=== PATIENT | male | born 1980 | race African-American/Black ===

== ENCOUNTER 2022-03-18 12:22 | Inpatient (IN) ==
[2022-03-18 13:07] LABS: Basophils # (auto) 0.03 K/uL (0-0.2); Basophils % (auto) 0.3 %; Eosinophils # (auto) 0.28 K/uL (0-0.50); Eosinophils % (auto) 2.5 %; Hematocrit (blood only) 49.2 % (40.1-51.0); Immature Granulocytes # (auto) 0.04 K/uL (0.00-0.02); Immature Granulocytes % (auto) 0.4 %; Lymphocytes # (auto) 2.01 K/uL (1.2-3.4); Mean Corpuscular Hemoglobin 31.4 pg (25.0-34.0); Mean Corpuscular Hgb Conc 34.6 g/dL (32.0-36.0); Mean Corpuscular Volume 90.8 fL (80.0-100.0); Mean Platelet Volume 11.2 fL (9.4-12.4); Monocytes # (auto) 0.57 K/uL (0.24-0.82); Monocytes % (auto) 5.1 %; Neutrophils # (auto) 8.23 K/uL (1.4-6.5); Neutrophils % (auto) 73.7 %; Platelet Count 180 K/uL (130-400); RDW Coefficient of Variation 12.6 % (11.5-14.5); RDW Standard Deviation 41.8 fL (36.4-46.3); Red Blood Count 5.42 M/uL (4.63-6.08); White Blood Count 11.16 K/ul (4.8-10.8)
[2022-03-18 13:30] LABS: BUN Creatinine Ratio 7.8 (10-20); Calcium 9.6 mg/dl (8.5-10.1); Creatinine Clr Calc Pharmacy 81.8 ml/min; Est GFR (African American) 78.2 ml/min; Est GFR (Non-African American) 67.5 ml/min; Potassium 4.3 mmol/L (3.5-5.1)
[2022-03-18 13:44] LABS: Albumin Globulin Ratio 1.5 (0.9-2); Albumin Level 4.3 gm/dl (3.4-5.0); Bilirubin,Total 0.7 mg/dl (0.2-1.0); Globulin 2.9 gm/dl (2.5-4.0); Total Protein 7.2 gm/dl (6.0-8.3)
[2022-03-18] MEDS ORDERED: SODIUM CHLORIDE 0.9% 1000ML 1,000 ML IV ONE (15:59)
[2022-03-18] MEDS ORDERED: ONDANSETRON INJ 2 MG/ML 2 ML VIAL IV STA (15:59)
--- NOTE | 2022-03-18 16:06 | Emergency Department Note ---
History of Present Illness General Chief complaint: Abdominal Pain Stated complaint: ABDOMINAL PAIN Time Seen by Provider: 03/18/22 15:44 Source: patient History of Present Illness Provider complaint: Abdominal pain Onset (ago): week(s) Location: abdomen Radiation: non-radiation Pain Consistency: + constant Maximum Pain Intensity: 7 Quality: + sharp Relieved By: + none Associated symptoms: + nausea/vomiting; no chest pain, no cough, no fever/chills or no shortness of breath This is a 41-year-old male with no significant past medical history presenting with abdominal pain. It started 7 days ago. He states it is located above his umbilicus in the epigastric region. He describes it as sharp. He rates it a 7 out of 10 in severity. No modifying factors. It is associated with vomiting today. He also had some diarrhea which was loose and watery. He had about 5 episodes without melanotic or bloody stools. He denies any fever, cough or cold symptoms, chest pain, shortness of breath or urinary symptoms. He has had no back pain. The pain does not radiate anywhere. [facility] without relief. He has been [facility] for several months and has not had access to alcohol. He does state that prior to his incarceration he did drink alcohol but mostly on weekends and holidays. He denies having any pain in the right side of his abdomen. Home Medications Medication Instructions Recorded Confirmed Type acetaminophen 325 mg capsule 325 mg PO QID PRN pain 03/18/22 03/18/22 History (Tylenol) dicyclomine 20 mg tablet 20 mg PO TID 03/18/22 03/18/22 History Past Med/Surg History Medical History (Updated 03/18/22 @ 18:38 by Morgan Pérez MD) Alcohol use History of marijuana use Patellofemoral arthritis of right knee Surgical History (Updated 03/18/22 @ 17:10 by Cristela Hayward PA-C) H/O right knee surgery Family History (Updated 03/18/22 @ 17:08 by Cristela Hayward PA-C) Aunt Pancreatic cancer Social History (Updated 03/18/22 @ 17:09 by Cristela Hayward PA-C) Smoking Status: Former smoker Tobacco Type: Cigarettes Hx Alcohol Use: Yes Hx Substance Use: Yes Non-Prescribed Medications: Marijuana and Other Non- Prescribed Medications Comment: Ecstasy Current Living Situation: Other Current Living Situation Comment: Incarcerated Feels Safe at Home: Yes Review of Systems See HPI for pertinent positives & negatives. and A total of 10 systems reviewed and were otherwise negative Physical Exam Vital Signs Vital Signs - 24 hr 03/18/22 12:37 03/18/22 16:32 Temperature 36.8 C Temperature Source Temporal Artery Scan Pulse Rate 52 L Pulse Rate [Finger] 61 Respiratory Rate 18 18 Respiratory Effort / Characteristics Non-Labored Spontaneous Respiratory Depth Normal Blood Pressure 141/84 H Blood Pressure [Left Arm] 136/83 Blood Pressure Mean 103 Blood Pressure Mean [Left Arm] 100 Pulse Oximetry 97 97 Oxygen Delivery Method Room Air Room Air Sepsis Recent Fever Within 48 Hours No Sepsis New/Unexplained Change in Mental Status No Sepsis Action Taken by Nursing No Action Required Constitutional: Vital signs reviewed. Eyes: Pupils are equal round reactive to light. Conjunctiva are noninjected. ENT: Pharynx is clear without erythema or exudate. Mucous membranes are somewhat dry. Neck supple without meningeal signs. Respiratory: Clear to auscultation bilaterally. Breath sounds are equal bilaterally. Cardiovascular: Regular rate and rhythm. No rubs or gallops. GI: Soft, nondistended with supraumbilical tenderness. No guarding. Bowel sounds are present. Musculoskeletal: No peripheral edema. No CVA tenderness. Integumentary: No cyanosis. or jaundice. Neurological: The patient is awake and alert. No focal deficits. Psychiatric: Normal affect. Not anxious appearing. Course Administered Medications Discontinued Medications Sodium Chloride (Nss 1000ml) 1,000 mls @ 999 mls/hr IV .Q1H1M ONE Stop: 03/18/22 16:59 Last Infusion: 03/18/22 17:25 Dose: 0 mls/hr Documented By: Admin: 03/18/22 16:18 Dose: 999 mls/hr Documented By: MARLYS Morphine Sulfate (Morphine Sulfate 4 Mg/Ml 1 Ml Carp\Vial) 4 mg IV NOW STA Stop: 03/18/22 16:00 Last Admin: 03/18/22 16:20 Dose: 4 mg Documented By: MARLYS Ondansetron HCl (Ondansetron Inj 2 Mg/Ml 2 Ml Vial) 4 mg IV NOW STA Stop: 03/18/22 16:00 Last Admin: 03/18/22 16:15 Dose: 4 mg Documented By: Medical Decision Making Differential Diagnosis Peptic ulcer disease, gallstones, pancreatitis, irritable bowel syndrome, inflammatory bowel disease, enteritis, colitis Medical Records Attestation: I reviewed the patient's medical records. I did perform a limited focused review of portions of the patient's old chart on the electronic medical record. The patient has had no prior visits to this hospital. Home Medications Current Medication List: was personally reviewed by me Laboratory Data Attestation: I reviewed the patient's lab results. Result diagrams: 03/18/22 12:50 03/18/22 12:50 Lab Results 03/18/22 03/18/22 03/18/22 Range/Units 12:50 12:50 16:44 WBC 11.16 H (4.8-10.8) K/ul RBC 5.42 (4.63-6.08) M/uL Hgb 17.0 (14.0-18.0) g/dl Hct 49.2 (40.1-51.0) % MCV 90.8 (80.0-100.0) fL MCH 31.4 (25.0-34.0) pg MCHC 34.6 (32.0-36.0) g/dL RDW Std Deviation 41.8 (36.4-46.3) fL RDW Coeff of Boo 12.6 (11.5-14.5) % Plt Count 180 (130-400) K/uL MPV 11.2 (9.4-12.4) fL Immature Gran % (Auto) 0.4 % Neut % (Auto) 73.7 % Lymph % (Auto) 18.0 % Sherman % (Auto) 5.1 % Eos % (Auto) 2.5 % Baso % (Auto) 0.3 % Neut # (Auto) 8.23 H (1.4-6.5) K/uL Lymph # (Auto) 2.01 (1.2-3.4) K/uL Sherman # (Auto) 0.57 (0.24-0.82) K/uL Eos # (Auto) 0.28 (0-0.50) K/uL Baso # (Auto) 0.03 (0-0.2) K/uL Immature Gran # (Auto) 0.04 H (0.00-0.02) K/uL Sodium 136 (136-145) mmol/L Potassium 4.3 (3.5-5.1) mmol/L Chloride 102 (98-107) mmol/L Carbon Dioxide 26 (21-32) mmol/L Anion Gap 8 (3-11) BUN 10 (6-23) mg/dl Creatinine 1.29 (0.6-1.4) mg/dl Est Cr Clr Drug Dosing 81.8 ml/min Est GFR ( Amer) 78.2 ml/min Est GFR (Non-Af Amer) 67.5 ml/min BUN/Creatinine Ratio 7.8 L (10-20) Glucose 111 H (70-99(Fasting)) mg/dl Calcium 9.6 (8.5-10.1) mg/dl Total Bilirubin 0.7 (0.2-1.0) mg/dl AST 25 (13-39) U/L ALT 25 (7-52) U/L Alkaline Phosphatase 71 (34-104) U/L Total Protein 7.2 (6.0-8.3) gm/dl Albumin 4.3 (3.4-5.0) gm/dl Globulin 2.9 (2.5-4.0) gm/dl Albumin/Globulin Ratio 1.5 (0.9-2) Triglycerides (0-150) mg/dl Cholesterol (0-200) mg/dl LDL Cholesterol, Calc mg/dl VLDL Cholesterol, Calc (0-30) mg/dl HDL Cholesterol mg/dl Cholesterol/HDL Ratio (0-5) Lipase 1710 H (11-82) U/L Urine Opiates Screen (Neg) Ur Methadone, Qual (Neg) Urine Barbiturates (Neg) Ur Phencyclidine (PCP) (Neg) U Amphetamin/Meth Scrn (Neg) MDMA (Ecstasy) Screen (Neg) U Benzodiazepines Scrn (Neg) Ur Cocaine Metabolite (Neg) U Marijuana (THC) Screen (Neg) Ethyl Alcohol mg/dL (<10.0) mg/dl SARS-CoV-2, RNA, NAAT NEGATIVE (NEGATIVE) 03/18/22 03/18/22 03/18/22 Range/Units 17:04 17:04 17:35 WBC (4.8-10.8) K/ul RBC (4.63-6.08) M/uL Hgb (14.0-18.0) g/dl Hct (40.1-51.0) % MCV (80.0-100.0) fL MCH (25.0-34.0) pg MCHC (32.0-36.0) g/dL RDW Std Deviation (36.4-46.3) fL RDW Coeff of Boo (11.5-14.5) % Plt Count (130-400) K/uL MPV (9.4-12.4) fL Immature Gran % (Auto) % Neut % (Auto) % Lymph % (Auto) % Sherman % (Auto) % Eos % (Auto) % Baso % (Auto) % Neut # (Auto) (1.4-6.5) K/uL Lymph # (Auto) (1.2-3.4) K/uL Sherman # (Auto) (0.24-0.82) K/uL Eos # (Auto) (0-0.50) K/uL Baso # (Auto) (0-0.2) K/uL Immature Gran # (Auto) (0.00-0.02) K/uL Sodium (136-145) mmol/L Potassium (3.5-5.1) mmol/L Chloride (98-107) mmol/L Carbon Dioxide (21-32) mmol/L Anion Gap (3-11) BUN (6-23) mg/dl Creatinine (0.6-1.4) mg/dl Est Cr Clr Drug Dosing ml/min Est GFR ( Amer) ml/min Est GFR (Non-Af Amer) ml/min BUN/Creatinine Ratio (10-20) Glucose (70-99(Fasting)) mg/dl Calcium (8.5-10.1) mg/dl Total Bilirubin (0.2-1.0) mg/dl AST (13-39) U/L ALT (7-52) U/L Alkaline Phosphatase (34-104) U/L Total Protein (6.0-8.3) gm/dl Albumin (3.4-5.0) gm/dl Globulin (2.5-4.0) gm/dl Albumin/Globulin Ratio (0.9-2) Triglycerides 47 (0-150) mg/dl Cholesterol 149 (0-200) mg/dl LDL Cholesterol, Calc 100 mg/dl VLDL Cholesterol, Calc 9 (0-30) mg/dl HDL Cholesterol 40 mg/dl Cholesterol/HDL Ratio 3.7 (0-5) Lipase (11-82) U/L Urine Opiates Screen Pos H (Neg) Ur Methadone, Qual Neg (Neg) Urine Barbiturates Neg (Neg) Ur Phencyclidine (PCP) Neg (Neg) U Amphetamin/Meth Scrn Neg (Neg) MDMA (Ecstasy) Screen Neg (Neg) U Benzodiazepines Scrn Neg (Neg) Ur Cocaine Metabolite Neg (Neg) U Marijuana (THC) Screen Neg (Neg) Ethyl Alcohol mg/dL < 10.0 (<10.0) mg/dl SARS-CoV-2, RNA, NAAT (NEGATIVE) Imaging Data Radiologist's Impression: Abdomen/Pelvis CT 03/18/22 15:59 CT abd pelvis IV con only CLINICAL HISTORY: pancreatitis eval for stone/pseudocyst TECHNIQUE: Helical axial images of the abdomen and pelvis were obtained and displayed. Automated dose lowering techniques and/or adjustment according to patient size were utilized for this exam. This exam was performed with intravenous contrast. CT DOSE: 440.82 mGy.cm COMPARISON: None available at the time of this dictation. FINDINGS: Lower chest: No acute abnormality Liver: Unremarkable. No focal lesions are seen. Gallbladder and biliary tree: No calcified gallstones. Normal caliber wall. No intra- or extrahepatic biliary ductal dilation. Pancreas: No definite abnormality is seen. There is questionable edema in the pancreatic tail. No pseudocyst or pancreatic stone is seen. Spleen: Splenule is incidentally noted. Adrenals: Unremarkable. Kidneys and ureters: Previously noted renal cysts are stable. Bladder: Unremarkable. Reproductive organs: Prostatic calcifications are seen which may represent prior hemorrhage or granulomatous disease. Bowel: Diverticulosis is seen without evidence of diverticulitis. The appendix is normal. Ill-defined mild wall thickening and fat stranding about the predominantly small bowel noted. Lymph nodes Retroperitoneal: Unremarkable. Pelvic: Unremarkable. Mesenteric: Unremarkable. Peritoneum: Diffuse fat stranding is seen about the loops of small bowel. Vessels: Unremarkable. Abdominal wall: A fat-containing umbilical hernia is seen. Bones: Unremarkable. IMPRESSION: 1. No definite evidence of pancreatitis. There is questionable minimal hypodensity in the pancreatic tail which may possibly represent a focus of pancreatitis, however may be due to streak artifact. No pseudocyst or pancreatic stone is seen. 2. Wall thickening and fat stranding about the small bowel favored to represent enteritis. ACT 112: Negative or not required by law. Electronically signed by: Camacho Hernández M.D. 03/18/2022 6:01 PM MDM Narrative I did evaluate the patient as noted above. IV access was established. I did treat him with morphine and Zofran IV. He was also given normal saline IV. I did order a urine analysis. I did order and review the patient's blood work as noted in the electronic medical record. His white count is slightly elevated at 11,000. He does have pancreatitis with a lipase of 1710. I did order a CT of the abdomen and pelvis. I did review the images myself as well as the radiology report as described above. He has some signs of focal pancreatitis to the tail of the pancreas. No pseudocyst is noted. There is no pancreatic stone or gallstones. There is wall thickening and fat stranding about the small bowel concerning for enteritis. He will be hospitalized for further care and evaluation. I did discuss the case with the hospitalist and bilingual patient support caseworker. Screening COVID test is negative. Impression & Plan Pancreatitis, Enteritis Discharge Plan Visit Data Chief Complaint: Abdominal Pain Stated Complaint: ABDOMINAL PAIN ED Provider: Morgan Pérez Discharge Problem: Pancreatitis, Enteritis Patient Disposition: Being Evaluated by Hospitalist Forms Stand Alone Forms: My [facility], [facility] Emergency Department, Important Visit Information Prescriptions Prescriptions: No Action dicyclomine 20 mg Tablet 20 mg PO TID acetaminophen [Tylenol] 325 mg Capsule 325 mg PO QID PRN (Reason: pain) Referrals Referrals: PCP,NO [Physician] -
[2022-03-18] MEDS: MoRPHine SULFATE 4 MG/ML 1 ML CARP\\VIAL IV STA ×2 (16:16→16:20)
--- NOTE | 2022-03-18 16:35 | History & Physical Report ---
Date of Service March 18, 2022 Assessment & Plan (1) Abdominal pain: (2) Vomiting: (3) Diarrhea: (4) Pancreatitis: Plan: -Admit to MedSurg, continue IV NSS at 200/h, allow clear liquid diet with improvement of pain for now -Trend lipase, check lipid panel, drug screen and alcohol level -No recent use of alcohol or drugs since being incarcerated for the past 17 years, exercises daily, no home medications, no changes in diet -Patient had been prescribed Bentyl and Tylenol which minimally improved his abdominal pain in the past week -Consider GI consultation -CT of the abdomen pelvis is pending, follow, pending results will determine further work -Continue pain control with oxycodone, Tylenol, Zofran, Dulcolax stool softener -Hemoccult all stools, check C. difficile for diarrhea DVT PPx - teds, ambulatory CODE: Full code Dispo: From [facility], likely to remain in the hospital x 1-2 days History of Present Illness Chief Complaint: Abdominal pain Primary Care Provider: [facility] Painter This is a 41 yo M with PMHx of alcohol use, patellofemoral disorder of the R knee, hx of cannabis use disorder and antisocial personality disorder. He notes epigastric abdominal pain started over a week ago, and last Saturday [facility]. There he was given tylenol and dicyclomine 20 mg tables TID as needed for abdominal pain. He had been using them throughout the week but reports that his abdominal pain worsened today and rated it 10.5/10 on a scale when he first arrived to the ER currently is a 2/10 after receiving morphine and some fluids. Pain typically stays in the upper part of his abdomen throat. He notes that he has been nauseous throughout the [place] and vomited x1 this morning, denies seeing any blood. Then proceeded to have diarrhea/loose bowels 5 times today. Denies any blood in bowel movement, dark tarry stools, blood streaking. Pain is improved after having a bowel movement. He has never had a colonoscopy or other endoscopic procedures in the past. He has a remote smoking history with cigarettes as well as marijuana. Also admits to using ecstasy in the very remote past. Denies any IV drug abuse. He has been incarcerated x 17 years. Denies any family history of abdominal issues such as crohns disease, ulcerative colitis. Admits to having maternal aunt who had pancreatic cancer. Unknown other medical history of family. Past Med/Surg History Medical History (Updated 03/18/22 @ 17:49 by Cristela Hayward PA-C) Alcohol use History of marijuana use Patellofemoral arthritis of right knee Surgical History (Updated 03/18/22 @ 17:10 by Cristela Hayward PA-C) H/O right knee surgery Family History (Updated 03/18/22 @ 17:08 by Cristela Hayward PA-C) Aunt Pancreatic cancer Social History (Updated 03/18/22 @ 17:09 by Cristela Hayward PA-C) Smoking Status: Former smoker Tobacco Type: Cigarettes Hx Alcohol Use: Yes Hx Substance Use: Yes Non-Prescribed Medications: Marijuana and Other Non- Prescribed Medications Comment: Ecstasy Current Living Situation: Other Current Living Situation Comment: Incarcerated Feels Safe at Home: Yes Review of Systems Review of Systems: Constitutional: No fever, +sweats, no chills Eyes: No diplopia, no worsening or blurred vision ENT: normal hearing, no trouble swallowing Respiratory: No cough, sputum, dyspnea at rest or on exertion Cardiovascular: No chest pain, tightness or palpitations Abdomen: + As per HPI with pain, nausea, vomiting, and diarrhea Musculoskeletal: No joint pain, calf pain, swelling Neurologic: No weakness, numbness/tingling, or balance problems Psychiatric: No anxiety or depression Skin: No rash or itch Physical Exam Physical Exam: General: awake, alert, no apparent distress, -Northern Irish male, + appears physically fit Head: Normocephalic, atraumatic ENT: PERRL, EOMI, no pharyngeal exudate, mucous membranes moist Chest: Clear to auscultation, on room air, no adventitious breath sounds Cardiac: Regular rate and rhythm, no murmur, no JVD, normal peripheral pulses, good capillary refill Abdominal: NABS x 4 quadrants, soft, nondistended, nontender to palpation, no rebound or guarding Extremities: Normal inspection, no peripheral edema or erythema, calfs nontender to palpation Psych: Normal mood and affect Neuro: AAO x 3, strength intact bilaterally and rated 5/5, no motor deficits, speech is clear, no peripheral sensory deficits Results & Data Results & Data ([facility]) Vital Signs (Past 12 Hours) Vital Signs Temp Pulse Resp BP Pulse Ox O2 Del Method 03/18/22 12:37 36.8 C 52 L 18 141/84 H 97 Room Air Laboratory Results 03/18/22 03/18/22 12:50 12:50 WBC 11.16 H RBC 5.42 Hgb 17.0 Hct 49.2 MCV 90.8 MCH 31.4 MCHC 34.6 RDW Std Deviation 41.8 RDW Coeff of Boo 12.6 Plt Count 180 MPV 11.2 Immature Gran % (Auto) 0.4 Neut % (Auto) 73.7 Lymph % (Auto) 18.0 [place] % (Auto) 5.1 Eos % (Auto) 2.5 Baso % (Auto) 0.3 Neut # (Auto) 8.23 H Lymph # (Auto) 2.01 [place] # (Auto) 0.57 Eos # (Auto) 0.28 Baso # (Auto) 0.03 Immature Gran # (Auto) 0.04 H Sodium 136 Potassium 4.3 Chloride 102 Carbon Dioxide 26 Anion Gap 8 BUN 10 Creatinine 1.29 Est Cr Clr Drug Dosing 81.8 Est GFR ( Amer) 78.2 Est GFR (Non-Af Amer) 67.5 BUN/Creatinine Ratio 7.8 L Glucose 111 H Calcium 9.6 Total Bilirubin 0.7 AST 25 ALT 25 Alkaline Phosphatase 71 Total Protein 7.2 Albumin 4.3 Globulin 2.9 Albumin/Globulin Ratio 1.5 Lipase 1710 H Code Status & VTE Plan Code Status Full code-discussed with the patient at bedside Supervising Physician Co-Signing Physician Notes Pt is a 41 y/o M with no PMH [facility] with [facility] abd pain. Admitted for abd pain, N/V with elevated lipase. PE: NAd, Well developed Lungs: CTA, no wheezing or crackles Heart: Normal S1/S2, no murmur Abd: mild discomfort to palpation of the epigastric area, ND, soft, normal BS MSK: no LE edema Psych: AAOx3, normal affect A/P: Abd pain with N/V: --- could be 2/2 pancreatitis vs gall bladder etiology vs possible peptic ulcer -wbc elevated - VSS -CT abd pending -lipase is elevated: will trend -s/p fluid bolus -will do 200 cc/hr of NS -prn pain med -will send lipid panel -clear liquid diet for now and advance as tolerates Agree with A/P by Cristela Hayward PA-C
[2022-03-18] MEDS ORDERED: OPTIRAY 300 100mL IV ONE (16:53)
[2022-03-18 17:33] LABS: Chol HDL Ratio 3.7 (0-5)
--- NOTE | 2022-03-18 18:03 | CT Scan Report ---
CT abd pelvis IV con only CLINICAL HISTORY: pancreatitis eval for stone/pseudocyst TECHNIQUE: Helical axial images of the abdomen and pelvis were obtained and displayed. Automated dose lowering techniques and/or adjustment according to patient size were utilized for this exam. This e xam was performed with intravenous contrast. CT DOSE: 440.82 mGy.cm COMPARISON: None available at the time of this dictation. FINDINGS: Lower chest: No acute abnormality Liver: Unremarkable. No focal lesions are seen. Gallbladder and biliary tree: No calcified gallstones. Normal caliber wall. No intra- or extrahepatic biliary ductal dilation. Pancreas: No definite abnormality is seen. There is questionable edema in the pancreatic tail. No pse udocyst or pancreatic stone is seen. Spleen: Splenule is incidentally noted. Adrenals: Unremarkable. Kidneys and ureters: Previously noted renal cysts are stable. Bladder: Unremarkable. Reproductive organs: Prostatic calcifications are seen which may represent prior hemorrhage or granul omatous disease. Bowel: Diverticulosis is seen without evidence of diverticulitis. The appendix is normal. Ill-defined mild wall thickening and fat stranding about the predominantly small bowel noted. Lymph nodes Retroperitoneal: Unremarkable. Pelvic: Unremarkable. Mesenteric: Unremarkable. Peritoneum: Diffuse fat stranding is seen about the loops of small bowel. Vessels: Unremarkable. Abdominal wall: A fat-containing umbilical hernia is seen. Bones: Unremarkable. IMPRESSION: 1. No definite evidence of pancreatitis. There is questionable minimal hypodensity in the pancreatic tail which may possibly represent a focus of pancreatitis, however may be due to streak artifact. No pseudocyst or pancreatic stone is seen. 2. Wall thickening and fat stranding about the small bowel favored to represent enteritis. ACT 112: Negative or not required by law. Electronically signed by: Camacho Hernández M.D. 03/18/2022 6:01 PM
[2022-03-18 18:15] LABS: Amphetamines+Metham, Urine Neg (Neg); Barbiturates, Urine Neg (Neg); Benzodiazepine, Urine Neg (Neg); Cocaine, Urine Neg (Neg); MDMA (Ecstacy), Urine Neg (Neg); Methadone, Urine Neg (Neg); Opiate, Urine Pos (Neg); Phencyclidine, Urine Neg (Neg)
[2022-03-18] MEDS ORDERED: ACETAMINOPHEN 325 MG TAB PO PRN (18:44)
[2022-03-18] MEDS ORDERED: oxyCODONE HCL IR 5 MG TAB (IMMEDIATE RELEASE) PO PRN (18:44)
[2022-03-18] MEDS ORDERED: ONDANSETRON INJ 2 MG/ML 2 ML VIAL IV PRN (18:44)
[2022-03-18] MEDS: SODIUM CHLORIDE 0.9% 1000ML 1,000 ML IV SCH ×2 (18:59→22:51)
[2022-03-19] MEDS: SODIUM CHLORIDE 0.9% 1000ML 1,000 ML IV SCH ×3 (03:43→13:20)
[2022-03-19 06:54] LABS: Hematocrit (blood only) 44.1 % (40.1-51.0); Hemoglobin 15.1 g/dl (14.0-18.0); Mean Corpuscular Hemoglobin 31.5 pg (25.0-34.0); Mean Corpuscular Hgb Conc 34.2 g/dL (32.0-36.0); Mean Corpuscular Volume 91.9 fL (80.0-100.0); Mean Platelet Volume 11.1 fL (9.4-12.4); Platelet Count 155 K/uL (130-400); RDW Coefficient of Variation 12.7 % (11.5-14.5); RDW Standard Deviation 42.7 fL (36.4-46.3); White Blood Count 6.91 K/ul (4.8-10.8)
[2022-03-19 07:19] LABS: BUN Creatinine Ratio 7.4 (10-20); Calcium 8.6 mg/dl (8.5-10.1); Creatinine Clr Calc Pharmacy 86.3 ml/min; Est GFR (African American) 84.5 ml/min; Est GFR (Non-African American) 72.9 ml/min
[2022-03-19] MEDS: bisacodyL 5 MG TABEC PO SCH (08:25)
--- NOTE | 2022-03-19 10:44 | Hospitalist Progress Note ---
Date of Service March 19, 2022 Assessment & Plan (1) Abdominal pain: (2) Vomiting: (3) Diarrhea: (4) Pancreatitis: Plan: This is a 41 yo M with PMHx of alcohol use, patellofemoral disorder of the R knee, hx of cannabis use disorder and antisocial personality disorder who presented to ED on 03/18 2/2 off and on abd pain x 1 week. Pain became severe on 03/18, constant and assoc with N/V/D. He presented to ED where he was diagnosed with pancreatitis due to elevated lipase,1710, and CT a/p concerning for possible pancreatitis. He is currently incarcerated at [facility]. Acute Pancreatitis N/V Admitted to [facility] Continue IV NSS at 200/h Consult GI Lipase has now normalized, abd pain improving, after GI eval will advance to clears if they agree Lipid Panel unremarkable, Total chol 149, LDL 100, HDL 40, Trig 47 No recent use of alcohol or drugs since being incarcerated for the past 17 years, exercises daily, no home medications, no changes in diet Patient had been prescribed Bentyl and Tylenol which minimally improved his abd ominal pain in the past week Continue pain control with oxycodone, Tylenol, Zofran, Dulcolax stool softener Hemoccult all stools, check C. difficile for diarrhea DVT PPx teds, ambulatory CODE: Full code Dispo: From [facility], d/c back to [facility] when pancreatitis resolves and pt tolerating diet Pt was seen and examined in collaboration with Dr. Jimenez, please see addendum Admission and Anticipated Discharge Date Admission Date: March 18, 2022 Supervising Physician Co-Signing Physician Notes Patient seen and examined at bedside as a follow-up of acute pancreatitis and nausea and vomiting, patient reports improvement in his belly pain and is tolerating diet, advance diet as tolerated. Lipase has now normalized. On examination, patient on room air, NAD, no abdominal tenderness on exam, rest of the examination as above. I have seen and examined the patient and have discussed the case with the provider above. I agree with the assessment and plan as stated. Subjective Patient was seen and examined in room 360-1. Follow up acute pancreatitis. Patient feels well this morning. Abd pain has mostly subsided. States sx have been off and on for the past week. Saw clinic [facility] residential who gave him medications that helped initially. Sx returned yesterday. Pain mostly in epigastrum, nonradiating, never had similar sx, nothing made better/worse, associated with vomiting and nausea. He vomited up his oatmeal he ate for breakfast early that morning. He has had no more n/v since admission. Abd pain mostly resolved. Denies f/c/s, chest pain, sob, uri sx, cough, dysuria, increased urg/freq with urination. He is gaining appetite back. He has had no further BM. Yesterday he had 2-3 episodes of diarrhea which actually helped ease abd pain. He is concerned due to +FH of pancreatic cancer in his aunt in her 60s that was fatal. Review of Systems Review of Systems: All systems reviewed & are unremarkable except as noted in HPI & below Physical Exam Physical Exam: Constitutional: WD/WN, vitals as above, NAD, sitting up in bed, pleasant, conversing easily Head: Normocephalic, Atraumatic Eyes: PERRL, conjunctivae normal, anicteric sclerae ENMT: external ear and nose normal, oropharynx normal Neck: trachea midline, no thyromegaly normal visual inspection Respiratory: normal respiratory effort, lungs clear to auscultation, no wheeze, rales, rhonchi. Normal insp/exp effort, no accessory muscle use Cardiovascular: RRR, no murmur, no edema Vessels: no JVD or carotid bruit Chest: normal inspection of chest Abdomen: normal bowel sounds, soft, nontender, no hepatosplenomegaly Musculoskeletal: no cyanosis or clubbing, extremities motor strength 5/5 Skin: no rashes, warm and dry normal turgor Neurologic: PERRL, EOMI, accommodation nl, no face palsy, no dysarthria CN's II-XI intact bilaterally and moves all extremities Psychiatric: A+Ox3, euthymic affect Lymphatic: no cervical or axillary lymphadenopathy : deferred Results & Data Results & Data ([facility]) Vital Signs (Past 12 Hours) Vital Signs Temp Pulse Resp BP Pulse Ox O2 Del Method 03/19/22 07:32 36.9 C 49 L 16 109/65 96 Room Air Laboratory Results Short CBC 03/18/22 03/19/22 Range/Units 12:50 06:27 WBC 11.16 H 6.91 (4.8-10.8) K/ul Hgb 17.0 15.1 (14.0-18.0) g/dl Hct 49.2 44.1 (40.1-51.0) % Plt Count 180 155 (130-400) K/uL BMP 03/18/22 03/19/22 12:50 06:27 Sodium 136 139 Potassium 4.3 4.0 Chloride 102 107 Carbon Dioxide 26 27 BUN 10 9 Creatinine 1.29 1.21 Glucose 111 H 77 Calcium 9.6 8.6 Liver Function 03/18/22 Range/Units 12:50 Total Bilirubin 0.7 (0.2-1.0) mg/dl AST 25 (13-39) U/L ALT 25 (7-52) U/L Alkaline Phosphatase 71 (34-104) U/L Albumin 4.3 (3.4-5.0) gm/dl Medications Administered Current Inpatient Medications Acetaminophen (Acetaminophen 325 Mg Tab) 650 mg PO Q4H PRN PRN Reason: Moderate Pain Stop: 04/17/22 18:43 Bisacodyl (Bisacodyl 5 Mg Tabec) 5 mg PO DAILY STANLEY Stop: 04/18/22 08:59 Last Admin: 03/19/22 08:25 Dose: 5 mg Sodium Chloride (Nss 1000ml) 1,000 mls @ 200 mls/hr IV .Q5H STANLEY Stop: 03/19/22 18:43 Last Admin: 03/19/22 08:25 Dose: 200 mls/hr Ondansetron HCl (Ondansetron Inj 2 Mg/Ml 2 Ml Vial) 4 mg IV Q4H PRN PRN Reason: Nausea And Vomiting Stop: 04/17/22 18:43 Oxycodone HCl (Oxycodone Hcl Ir 5 Mg Tab (Immediate Release)) 5 mg PO Q6H PRN PRN Reason: Pain Stop: 04/01/22 18:43 (1) Pancreatitis Acute pancreatitis complication: no infection or necrosis Chronicity: acute Pancreatitis type: idiopathic Qualified Code(s): K85.00 - Idiopathic acute pancreatitis without necrosis or infection
--- NOTE | 2022-03-19 13:09 | Gastrointestinal Consultation ---
Date of Consultation March 19, 2022 Assessment & Plan (1) Pancreatitis: Plan 1. Cont LR at 200/hr. 2. Clear liquid diet. If tolerates well then may advance to soft, low fat this evening or tomorrow morning. 3. Plan for OP EUS in 6 months. Our office will contact him to arrange. 4. As much improved and an uncomplicated, acute pancreatitis, GI will sign off. Please notify us if new/worsening GI issues. Supervising Physician Co-Signing Physician Notes I have personally seen and examined the patient with JAROD Walker. Her note reflects my exam and findings. I agree with her impression and plan. Will need out patient EUS looking for gall stone or pancreatic disease. Rafael Wilkerson M.D. History of Present Illness Reason for Consultation: Pancreatitis Requesting Physician: Shelly Artis PA-C Attending Physician: Gennaro Jimenez MD History of Present Illness Mr. Helen Ron is a 41-year-old male patient, and inmate, who presented to the emergency room yesterday for epigastric pain. This had begun on SaturdayMarch 11, at which time he saw the [facility] providers and was prescribed dicyclomine which helped some. He was generally well until yesterday, SaturdayMarch 18, when the pain returned and was much more severe. He describes the pain as being sharp and a very bad ache in the epigastric area. It does not radiate. He is not had yellow eyes or dark urine. On arrival, CT scan with mild pancreatitis of the pancreatic tail, and lipase was elevated on arrival at 1400 yesterday-> [address] also suggests enteritis but pt denies any diarrhea. LFTs have not been elevated. WBC was minimally elevated at 11.16 -> 6.01. He has not had fevers or diarrhea. He is not distended. He passed 4 soft formed brown BMs 4 yesterday, none today. No nausea or vomiting today. He tells me that his pain is much improved and he is hungry and would like to eat. LR is running at 200 per hour. He has an aunt who passed of pancreatic cancer in her 60s. The patient himself has had an approximately 20 lb weight loss over the last few years but this is non unexpected as he is eating healthy and exercising. He has never previously had pancreatitis. He has a gallbladder. He did not have elevated LFTs or any abnormalities of the gallbladder or the bile duct on imaging. No family history of gallbladder disease. He admits to previously drinking large amounts of Vodka, but not daily - about twice a month drinking an entire bottle of vodka which we believe is probably about 12 oz. However, he has completely abstained since , as he has been incarcerated since that time. Home Medications Medication Instructions Recorded Confirmed Type acetaminophen 325 mg capsule 325 mg PO QID PRN pain 03/18/22 03/18/22 History (Tylenol) dicyclomine 20 mg tablet 20 mg PO TID 03/18/22 03/18/22 History Patient History Medical History (Updated 03/18/22 @ 18:38 by Morgan Pérez MD) Alcohol use History of marijuana use Patellofemoral arthritis of right knee Surgical History (Updated 03/18/22 @ 17:10 by Cristela Hayward PA-C) H/O right knee surgery Family History (Updated 03/18/22 @ 17:08 by Cristela Hayward PA-C) Aunt Pancreatic cancer Social History (Updated 03/18/22 @ 17:09 by Cristela Hayward PA-C) Smoking Status: Former smoker Tobacco Type: Cigarettes Second Hand Exposure: No; Do You Dip or Chew Tobacco: No; Tobacco Cessation Education Requested by Patient: No Hx Alcohol Use: No Hx Substance Use: No Preferred Language: Guamanian Communication Ability: Effective Finance Assistant Required: No Beliefs That Will Affect Care: None Current Living Situation: Other Current Living Situation Comment: incarcerated Feels Safe at Home: Yes Assistive Devices: None Review of Systems Review of Systems: ROS: Gen: Denies weakness, fevers, weight loss Eyes: No eye redness, or pain, no recent vision changes Resp: No SOB, no cough Cardio: No palpitations/irregular beats, no chest pain GI: As per HPI, otherwise negative : Denies pain on urination Skin: No jaundice, itching or new rashes Physical Exam Constitutional: WD/WN, vitals as above Eyes: PERRL, conjunctivae normal, anicteric sclerae ENMT: external ear and nose normal, oropharynx normal Neck: trachea midline, no thyromegaly Respiratory: normal respiratory effort, lungs clear to auscultation Cardiovascular: RRR, no murmur, no edema Gastrointestinal (Abdomen): Minimal epigastric tenderness on deep palpation, otherwise normal without any distention. Abdomen is soft. Bowel sounds are present and normal. Skin: no rashes, warm and dry Neurologic: PERRL, EOMI, accommodation nl, no face palsy, no dysarthria Psychiatric: A+Ox3, euthymic affect Lymphatic: no cervical or axillary lymphadenopathy Results & Data ([facility]) Vital Signs (Past 12 Hours) Vital Signs Temp Pulse Resp BP Pulse Ox O2 Del Method 03/19/22 07:32 36.9 C 49 L 16 109/65 96 Room Air Laboratory Results WBC 6.9, HGB 15.1, HCT 44.1, PLT S1-5 5, Na 139, K 4.0, Cl 107, CO2 27, BUN 9, CR 1.20, glucose 77. Lipase 40. LFTs normal. Diagnostic Findings CTAP w IV contrast 03/28/22: 1. No definite evidence of pancreatitis. There is questionable minimal hypodensity in the pancreatic tail which may possibly represent a focus of pancreatitis, however may be due to streak artifact. No pseudocyst or pancreatic stone is seen. 2. Wall thickening and fat stranding about the small bowel favored to represent enteritis. (1) Pancreatitis Acute pancreatitis complication: no infection or necrosis Chronicity: acute Pancreatitis type: idiopathic Qualified Code(s): K85.00 - Idiopathic acute pancreatitis without necrosis or infection
[2022-03-19 15:11] LABS: Adenovirus F 40/41 PCR Not Detected (NotDetected); Astrovirus PCR Not Detected (NotDetected); Campylobacter PCR Not Detected (NotDetected); Clostridium diff Toxin A/B PCR Not Detected (NotDetected); Cryptosporidium PCR Not Detected (NotDetected); Cyclospora cayetanensis PCR Not Detected (NotDetected); Entamoeba histolytica PCR Not Detected (NotDetected); Enteroaggregative E.coli(EAEC) Not Detected (NotDetected); Enteropathogenic E.coli (EPEC) Not Detected (NotDetected); Enterotoxigenic E.coli (ETEC) Not Detected (NotDetected); Giardia lamblia PCR Not Detected (NotDetected); Norovirus GI/GII PCR Not Detected (NotDetected); Plesiomonas shigelloides PCR Not Detected (NotDetected); Rotavirus A PCR Not Detected (NotDetected); Salmonella PCR Not Detected (NotDetected); Sapovirus PCR Not Detected (NotDetected); Shiga-like Toxin E.coli (STEC) Not Detected (NotDetected); Shigella/Enteroinvasive E.coli Not Detected (NotDetected); Vibrio cholerae PCR Not Detected (NotDetected); Vibrio species PCR Not Detected (NotDetected); Yersinia enterocolitica PCR Not Detected (NotDetected)
[2022-03-20] MEDS: bisacodyL 5 MG TABEC PO SCH (07:58)
[2022-03-20 09:04] LABS: Basophils # (auto) 0.02 K/uL (0-0.2); Basophils % (auto) 0.3 %; Eosinophils # (auto) 0.59 K/uL (0-0.50); Eosinophils % (auto) 9.8 %; Hematocrit (blood only) 43.6 % (40.1-51.0); Immature Granulocytes # (auto) 0.01 K/uL (0.00-0.02); Immature Granulocytes % (auto) 0.2 %; Lymphocytes # (auto) 2.45 K/uL (1.2-3.4); Lymphocytes % (auto) 40.6 %; Mean Corpuscular Hemoglobin 31.3 pg (25.0-34.0); Mean Corpuscular Hgb Conc 34.4 g/dL (32.0-36.0); Mean Corpuscular Volume 90.8 fL (80.0-100.0); Mean Platelet Volume 11.4 fL (9.4-12.4); Monocytes # (auto) 0.33 K/uL (0.24-0.82); Monocytes % (auto) 5.5 %; Neutrophils # (auto) 2.64 K/uL (1.4-6.5); Neutrophils % (auto) 43.6 %; Platelet Count 142 K/uL (130-400); RDW Coefficient of Variation 12.5 % (11.5-14.5); RDW Standard Deviation 41.9 fL (36.4-46.3); White Blood Count 6.04 K/ul (4.8-10.8)
[2022-03-20 09:31] LABS: Albumin Globulin Ratio 1.4 (0.9-2); Albumin Level 3.8 gm/dl (3.4-5.0); BUN Creatinine Ratio 6.3 (10-20); Bilirubin,Total 0.7 mg/dl (0.2-1.0); Calcium 8.7 mg/dl (8.5-10.1); Est GFR (African American) 93.8 ml/min; Est GFR (Non-African American) 80.9 ml/min; Globulin 2.7 gm/dl (2.5-4.0); Magnesium 1.9 mg/dl (1.7-2.4); Potassium 3.6 mmol/L (3.5-5.1); Total Protein 6.5 gm/dl (6.0-8.3)
--- NOTE | 2022-03-20 09:41 | Discharge Summary ---
Date of Service March 20, 2022 Admission HPI Per Admitting Provider This is a 41 yo M with PMHx of alcohol use, patellofemoral disorder of the R knee, hx of cannabis use disorder and antisocial personality disorder. He notes epigastric abdominal pain started over a week ago, and last Saturday presented to the [facility]. There he was given tylenol and dicyclomine 20 mg tables TID as needed for abdominal pain. He had been using them throughout the week but reports that his abdominal pain worsened today and rated it 10.5/10 on a scale when he first arrived to the ER currently is a 2/10 after receiving morphine and some fluids. Pain typically stays in the upper part of his abdomen throat. He notes that he has been nauseous throughout the week and vomited x1 this morning, denies seeing any blood. Then proceeded to have diarrhea/loose bowels 5 times today. Denies any blood in bowel movement, dark tarry stools, blood streaking. Pain is improved after having a bowel movement. He has never had a colonoscopy or other endoscopic procedures in the past. He has a remote smoking history with cigarettes as well as marijuana. Also admits to using ecstasy in the very remote past. Denies any IV drug abuse. He has been incarcerated x 17 years. Denies any family history of abdominal issues such as crohns disease, ulcerative colitis. Admits to having maternal aunt who had pancreatic cancer. Unknown other medical history of family. Admission Exam Per Admitting Provider General: awake, alert, no apparent distress, -Brune[place] male, + appears physically fit Head: Normocephalic, atraumatic ENT: PERRL, EOMI, no pharyngeal exudate, mucous membranes moist Chest: Clear to auscultation, on room air, no adventitious breath sounds Cardiac: Regular rate and rhythm, no murmur, no JVD, normal peripheral pulses, good capillary refill Abdominal: NABS x 4 quadrants, soft, nondistended, nontender to palpation, no rebound or guarding Extremities: Normal inspection, no peripheral edema or erythema, calfs nontender to palpation Psych: Normal mood and affect Neuro: AAO x 3, strength intact bilaterally and rated 5/5, no motor deficits, speech is clear, no peripheral sensory deficits Principal Diagnosis Acute pancreatitis - resolved Enteritis - resolved Discharge Exam Gen: WD/WN, NAD, A&O x3 HEENT: Normocephalic, atraumatic, conjunctivae moist, sclerae anicteric, mucous membranes moist. Lung: Clear to Auscultation bilaterally, no wheezes/rales/rhonchi Heart: Regular rate, regular rhythm, no murmurs, rubs, or gallops Abdomen: Soft, NT, ND +BS x 4 Extremities: No edema Skin: Warm, no rash, negative turgor. Discharge Data Consultations 03/18/22 16:16 ED Decision to Admit Stat 03/19/22 07:43 Consult Gastroenterology Routine Assessment & Plan (1) Pancreatitis: Plan 1. Cont LR at 200/hr. 2. Clear liquid diet. If tolerates well then may advance to soft, low fat this evening or tomorrow morning. 3. Plan for OP EUS in 6 months. Our office will contact him to arrange. 4. As much improved and an uncomplicated, acute pancreatitis, GI will sign off. Please notify us if new/worsening GI issues. Supervising Physician Co-Signing Physician Notes I have personally seen and examined the patient with JAROD Walker. Her note reflects my exam and findings. I agree with her impression and plan. Will need out patient EUS looking for gall stone or pancreatic disease. Rafael Wilkerson M.D. Ordered Studies 03/18/22 15:59 CT abd pelvis IV con only Stat Abdomen/Pelvis CT 03/18/22 15:59 CT abd pelvis IV con only CLINICAL HISTORY: pancreatitis eval for stone/pseudocyst TECHNIQUE: Helical axial images of the abdomen and pelvis were obtained and displayed. Automated dose lowering techniques and/or adjustment according to patient size were utilized for this exam. This exam was performed with intravenous contrast. CT DOSE: 440.82 mGy.cm COMPARISON: None available at the time of this dictation. FINDINGS: Lower chest: No acute abnormality Liver: Unremarkable. No focal lesions are seen. Gallbladder and biliary tree: No calcified gallstones. Normal caliber wall. No intra- or extrahepatic biliary ductal dilation. Pancreas: No definite abnormality is seen. There is questionable edema in the pancreatic tail. No pseudocyst or pancreatic stone is seen. Spleen: Splenule is incidentally noted. Adrenals: Unremarkable. Kidneys and ureters: Previously noted renal cysts are stable. Bladder: Unremarkable. Reproductive organs: Prostatic calcifications are seen which may represent prior hemorrhage or granulomatous disease. Bowel: Diverticulosis is seen without evidence of diverticulitis. The appendix is normal. Ill-defined mild wall thickening and fat stranding about the predominantly small bowel noted. Lymph nodes Retroperitoneal: Unremarkable. Pelvic: Unremarkable. Mesenteric: Unremarkable. Peritoneum: Diffuse fat stranding is seen about the loops of small bowel. Vessels: Unremarkable. Abdominal wall: A fat-containing umbilical hernia is seen. Bones: Unremarkable. IMPRESSION: 1. No definite evidence of pancreatitis. There is questionable minimal hypodensity in the pancreatic tail which may possibly represent a focus of pancreatitis, however may be due to streak artifact. No pseudocyst or pancreatic stone is seen. 2. Wall thickening and fat stranding about the small bowel favored to represent enteritis. ACT 112: Negative or not required by law. Electronically signed by: Camacho Hernández M.D. 03/18/2022 6:01 PM Hospital Course (1) Abdominal pain: (2) Vomiting: (3) Diarrhea: (4) Pancreatitis: This is a 41 yo M with PMHx of alcohol use, patellofemoral disorder of the R knee, hx of cannabis use disorder and antisocial personality disorder who presented to ED on 03/18 2/2 off and on abd pain x 1 week. Pain became severe on 03/18, constant and assoc with N/V/D. He presented to ED where he was diagnosed with pancreatitis due to elevated lipase,1710, and CT a/p concerning for possible pancreatitis and enteritis. He is currently incarcerated at [facility]. He was treated with conservative therapy, IVF, bowel rest and pain medication. His lipid panel was unremarkable. His stool culture was negative for blood and enteric pathogens. He was seen and evaluated by Gastroenterology. Fortunately, patients symptoms resolved quickly and with in 24 hours his lipase normalized. We were able to advance his diet from clear liquids to a soft, low fat diet. He has been tolerating diet well and is abdominal pain free. He has had no more episodes of diarrhea. On day of discharge he has no acute concerns; except for how he can prevent this in the future. He will need to follow up with gastroenterology as outpatient for a EUS. He may return to normal activity. Low fat diet was discussed with him. Etiology of pancreatitis/enteritis are unclear. Pancreatitis possibly from passage of gall stone. Enteritis likely reactive and /or viral in nature. He was hemodynamically stable on discharge. Total Time Total Time Spent Total Time Spent (In Minutes): 35 minutes Discharge Plan Discharge Items [facility] Reason For Visit: PANCREATITIS Discharge Diagnosis: Acute Pancreatitis Activity: Resume your previous activity Non-emergency contact: Primary Care Provider Call non-emergency contact if: you have any medication questions, your symptoms worsen, your pain is not controlled, your pain is worsening, your pain is unusual for you, your pain is concerning for you, you have a fever and your temperature is above 101 Follow-up/Referrals: Madina RYAN [Primary Care Provider] - Diet: Low Fat Addtl Attending Provider Instructions: MEDICATION CHANGES: Stop Dicyclomine SUMMARY OF TEST RESULTS: You were admitted to hospital due to acute pancreatitis. Your symptoms resolved with IV fluids, bowel rest and pain medications. You were seen and evaluated by a GI Physician. You will follow up with them in 6 months for endoscopy procedure. PENDING TEST RESULTS: None RECOMMENDATIONS FOR FOLLOW-UP: Please follow up with provider at [facility]. Follow up with [facility] in 6 months for outpatient Endoscopy procedure. They will call to arrange this. Recommend following a low fat diet. Instructions are provided for you in packet. If pain returns please contact your provider immediately. You may resume all previous activity, no restrictions. OTHER INSTRUCTIONS: Seek medical attention if you have: * temperature above 101 * chest pain or trouble breathing * abdominal pain, nausea, vomiting * diarrhea, dark stools or bloody stools * any unanswered questions or concerns Call 911 if symptoms are severe. Please take good care of yourself. It has been a pleasure taking care of you. Please take care of yourself. If you have any questions regarding your recent hospitalization please contact [facility] and request [facility] Oliver[facility]ist @ [phone]. Shelly Artis PA-C Pending Studies at Discharge: No Stand-Alone Forms: My [facility] Skilled Items Patient informed of condition?: Yes Discharge Level of Care: Other Communicable Disease: No Discharge Prognosis: Stable Lines: None Urinary Catheter: No Medications and DC Order Prescriptions: Continued acetaminophen [Tylenol] 325 mg Capsule 325 mg PO QID PRN (Reason: pain) Discontinued dicyclomine 20 mg Tablet 20 mg PO TID Discharge Orders: Discharge Order (Routine); Ordered 03/20/22 Ordered By: Shelly Gonsalez/Other Patient Handouts: Understanding Pancreatitis, Pancreatitis Acute Dc, ED Diet, Low Fat Admission Data Admit Date/Time: 03/18/22 16:58 Attending Provider: Gennaro Jimenez Admit Provider: Jesus Doshi Primary Care Provider: Madina RYAN Other Providers: Jesus Doshi ; Shelly Artis ; Maria Del Carmen Potts Other Interventions: Discharge Summary Assessment (RN) Last Done: 03/20/22 11:32 Supervising Physician Co-Signing Physician Notes Patient seen and examined at bedside as a follow-up of acute pancreatitis and nausea and vomiting, patient reports improvement in his belly pain and is tolerating diet, advance diet as tolerated. Lipase has now normalized. Patient reports significant improvement in his belly pain and is tolerating soft diet. Patient to follow-up with his PCP and GI as an outpatient. On examination, patient on room air, NAD, no abdominal tenderness on exam, rest of the examination as above. I have seen and examined the patient and have discussed the case with the provider above. I agree with the assessment and plan as stated.
[2022-03-20 22:11] LABS: Codeine Urine NEGATIVE ng/mL (<50); Hydrocodone Urine NEGATIVE ng/mL (<50); Hydromor Urine NEGATIVE ng/mL (<50); Morphine Urine 594 ng/mL (<50); Norhydrocodone Conf Ur NEGATIVE ng/mL (<50); Noroxycodone Urine NEGATIVE ng/mL (<50); Oxycodone Urine NEGATIVE ng/mL (<50); Oxymorph Urine NEGATIVE ng/mL (<50)
== END 2022-03-20 13:31 | DRG 440 ==
LOC: ED 12:22 → 3W 16:58 → SUATTDRO 16:58 → 3W 18:45